=== PATIENT | female | born 1955 | race Caucasian/White ===

== ENCOUNTER 2024-04-13 05:16 | Day surgery (SDC) | payer MEDICARE, OTHER ==
[2024-04-13] MEDS ORDERED: BUPIVACAINE 0.5 % PF 150 MG/30 ML VIAL ONE (06:15)
[2024-04-13] MEDS ORDERED: BUPIVACAINE 0.25% 75 MG/30 ML VIAL ONE (06:15)
[2024-04-13] MEDS ORDERED: ANESTHESIA TRAY IN PYXIS 1 EA TRAY MC ONE (06:15)
[2024-04-13] MEDS ORDERED: FENTANYL PF 250MCG/5ML AMPUL ONE (06:25)
[2024-04-13] MEDS ORDERED: ROCURONIUM BROMIDE 50 MG/5 ML ONE (06:26)
== END 2024-04-13 09:30 | disposition home or self-care (01) ==
LOC: DS 05:16
PROVIDERS: ATTEND Specialist
DX: S83.281A Other tear of lateral meniscus, current injury, right knee, initial encounter (principal); S83.241A Other tear of medial meniscus, current injury, right knee, initial encounter; M22.41 Chondromalacia patellae, right knee; M23.41 Loose body in knee, right knee; I10 Essential (primary) hypertension; Z79.899 Other long term (current) drug therapy; Z80.3 Family history of malignant neoplasm of breast; X58.XXXA Exposure to other specified factors, initial encounter; Y93.89 Activity, other specified; Y92.89 Other specified places as the place of occurrence of the external cause; Y99.8 Other external cause status
CPT/HCPCS: A4217; J0690; J1100; J2405; J2704; J3010; J3490